=== PATIENT | female | born 2000 | race Caucasian/White ===

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

== ENCOUNTER 2025-01-11 08:50 | Emergency (ER) | payer OTHER, SELFPAY ==
--- OUTSIDE RECORDS SUMMARY | 2025-01-11 08:53 | XMS_ITS | Data Portability ---
Author Organization [facility] [employer], Main Office Address [address] [place] [address] Care Team Providers Care Research Hydraulic Engineer Name Role Phone EDGARDO GUTIERREZ Primary Care Provider Assessment Encounter Date Assessment Date Assessment LastModified by Organization Details LastModified Time 12/25/2024 12/25/2024 24 yo F with - WELL ADULT VISIT - ANXIETY - MIDDLE AND LOW BACK PAIN, chronic - VIT D DEFICIENCY - SMOKER D/w pt about her findings, recent labs & imagines and further plan of care. Will do routine labs, x-rays. Meds as directed. Heat pack as directed prn. Diet and exercise explained. Safe sex education given. HM: WWE - 2023, normal as per pt. Cont f/u with Gyne as per schedule. Flu - Pt declined. Tdap, Gardasil - At pharmacy/HD. F/u in 2-3 weeks. Annual labs in 01/01. [email or web address] Not available 12/25/2024 15:18:30 Plan of Treatment Reminders Order Date Submit Date Provider Last Modified By Organization Details Last Modified Time Details Appointments Any 15 2024 01:00P Frances Gutierrez MD Not available Not available Not available Lab vitamin D, 25-hydrox y, total, serum 2024 025 [email or web address] [facility] (Lab), [address] [place], [address], 01/10/2025 09:20:02 test, urine 2024 025 [facility], [address] [place] [address], [place], [address], 12/25/2024 15:14:22 CBC w/ auto diff [address] (Lab), [address] [place], [address], 01/10/2025 09:20:01 CMP, serum or plasma [address] (Lab), [address] [place], [address], 01/10/2025 09:20:01 lipid panel, serum [address] (Lab), [address] [place], [address], 01/10/2025 09:20:02 TSH, serum, reflex free T4 [address] (Lab), [address] [place], [address], 01/10/2025 09:20:02 urinalysi s complete, reflex culture [address] (Lab), [address] [place], [address], 01/10/2025 09:20:02 Referral None recorded. Procedures None recorded. Surgeries None recorded. Imaging XR, lumbosacr al spine, 2 or 3 view [address] ([facility]), [address] [place], [address], 01/09/2025 15:36:46 XR, thoracic spine, 3 view [address] ([facility]), [address] [place], [address], 01/02/2025 08:54:49 Medication Orders diclofena c sodium 75 mg tablet,de layed release 2024 025 [id number], [address] [place], [place], [id number], 12/25/2024 15:00:45 buspirone 7.5 mg tablet 2024 [facility] #[id number], [address] [place], [place], [id number], 12/25/2024 15:00:44 Patient TargetsNo targets recorded. Patient InstructionsNo instructions recorded. Reason for Referral None Reported. Results Created Date Observation Date Name Description Value Unit Range Abnormal Flag Note LastModifiedBy Organization Detail LastModifiedTime 12/26/1912/25/2024 pregn yvonne test, urine HCG Negati ve Not Available [address], [address], 12/25/2024 15:01:44 12/26/19 25 12/25/2024 pregn yvonne test, urine HCG negati ve Not Available [address], [address], 12/25/2024 15:01:44 01/07/20 25 01/06/2025 XR, thora cic spine , 3 view [facility] [address] [place] [address] [phone] Patien t Name: EMMA GARRIDO Access ion #: [id number] Sex: F : 1999 7 Locati on: MOP Attend ing Physic steffen: SHAY GUTIERREZ Orderi ng Physic steffen: SHAY GUTIERREZ Exam Date: 12:03 PM Exam Name: XR T SPINE 3V Admitt ing Diagno sis(es ): RADIOL OGY REPORT - FINAL EXAM: XR T SPINE 3V HISTOR Y: thorac ic back pain 24-yea r-old female with back pain, no known injury . COMPAR JACKI: None availa ble. TECHNI QUE: Three views of the thorac ic spine were perfor med. FINDIN GS: No fractu re or listhe sis are identi fied about the thorac ic spine. No signif icant degene rative change s. There is minima l thorac ic levosc oliosi s. IMPRES RAUL: 1. No fractu re or signif icant degene rative change s of the thorac ic spine. 2. Minima l thorac ic levosc oliosi s. Page 1 of 2 [facility] Patien t Name: EMMA GARRIDO Access ion #: [id number] Sex: F : 1999 7 Exam Date: 12:03 PM Exam Name: XR T SPINE 3V Admitt ing Diagno sis(es ): Create d and electr onical ly signed by: Alejandro ayala MD Signed Date: 3:18 PM (CT) Dictat ed by: Alejandro ayala MD DD: 3:18 PM (CT) DT: 3:18 PM (CT) Page [address] of [address] (Imaging) [address] [place], [address], 01/07/2025 10:41:39 01/07/20 25 01/06/2025 XR, lumba r spine [facility] [address] [place] [address] [phone] Patien t Name: EMMA GARRIDO Access ion #: [id number] Sex: F : 1999 7 Locati on: [facility] Attend ing Physic steffen: SHAY GUTIERREZ Orderi ng Physic steffen: SHAY GUTIERREZ Exam Date: 12:03 PM Exam Name: XR L SPINE Admitt ing Diagno sis(es ): RADIOL OGY REPORT - FINAL EXAM: XR L SPINE HISTOR Y: low back pain 24-yea r-old female with low back pain radiat ing to the bilate ral legs, no known injury . COMPAR JACKI: None availa ble. TECHNI QUE: AP and latera l views of the lumbar spine and spot latera l of the lumbos acral juncti on were perfor med. FINDIN GS: No fractu re or listhe sis of the lumbar spine. No signif icant degene rative change s. IMPRES RAUL: Page 1 of 2 [facility] Name[facility] EMMA G[facility] Access ion #: [id number] Sex: F : 1999 7 Exam Date: 12:03 PM Exam Name: XR L SPINE Admitt ing Diagno sis(es ): Unrema rkable radiog raphs of the lumbar spine. Given the patien t's histor y of lower extrem ity radicu lar sympto ms, consid er follow -up noncon trast MRI of the lumbar spine for evalua tion of the lumbar discs and nerve roots. Create d and electr onical ly signed by: Alejandro ayala MD Signed Date: 3:19 PM (CT) Dictat ed by: Alejandro ayala MD DD: 3:19 PM (CT) DT: 3:19 PM (CT) Page 2 of 2 [email or web address] [facility] (Imaging) [address] [place], [address], 01/07/2025 10:41:39 Result Notes None recorded. Problems Name Problem SNOMED Code Status Onset Date Resolution Date Notes Provider Name and Address Organization Details Recorded Time Vitamin D deficiency 52019039 Active 025 Edgardo Gutierrez MD [address], [facility] [address], [place], [address], [employer] [facility] [employer] 5 14:56:12 Cigarette smoker 80711334 Active 025 Edgardo Gutierrez MD [address], [address], [place], [address], [employer] 5 14:56:22 Thoracic back pain 283766582 Active 025 Edgardo Gutierrez MD [address], [place], [address], [employer] 5 14:58:27 Chronic low back pain 806521760 Active 025 Edgardo Gutierrez MD [address], [address], [employer] 5 14:58:45 Anxiety disorder 688478712 Active 025 Edgardo Gutierrez MD [address], [place], [address], [employer] 5 14:59:04 Problem Notes None recorded. Procedures Surgical History Date Name Laterality Status Provider Name and Address Organization Details Recorded Time 5 Smoking Cessation completed Edgardo Gutierrez MD [address], [address] [address], [place], [address], [employer] 12/25/2024 15:18:41 Imaging Results Imaging Date Name Status LastModified by Organiz ation Details LastModified Time 01/06/2025 XR, thoracic spine, 3 view completed [email or web address] [facility] (Imaging) [address] [place], [address], 01/07/2025 10:41:39 01/06/2025 XR, lumbar spine completed [email or web address] [facility] (Imaging) [address] [place], [address], 01/07/2025 10:41:39 Procedure Notes None recorded. Medical Equipment None Reported. Allergies No known drug allergies Medications Name Sig Start Date Stop Date Status Note LastModified by Organization Details LastModified Time buspirone 7.5 mg tablet TAKE 1 TABLET BY MOUTH TWICE DAILY NEEDED active Not Available Not Available No t Available diclofenac sodium 75 mg tablet,delay ed release TAKE 1 TABLET BY MOUTH EVERY 12 HOURS NEEDED active Not Available Not Available No t Available Vitals Date Recorded Body height Body mass index (BMI) Body weight Body temperature Oxygen saturation Oxygen saturation in Arterial blood by Pulse oximetry Heart rate Systolic blood pressure Diastolic blood pressure Provider Name and Address Organization Details Last Updated DateTime 177.8 cm 19 kg/m2 10555.8 9 g 97.7 [degF] 99 % 99 % 84 /min 110 mm[Hg] 70 mm[Hg] Stephania Mac RN [facility] [employer] 14:44:21 Social History Question Answer Notes LastModified by Organizat ion Details LastModified Time Tobacco Smoking Status Current Every Day Smoker Stephania Mac RN [facility], [email or web address] 12/25/2024 14:51:43 What Is Your Level Of Alcohol Consumption? None [email or web address] Information not available 12/25/2024 What Is Your Level Of Caffeine Consumption? Occasional 2 Cups Coffee Per Day [email or web address] Information not available 12/25/2024 Which Illicit Or Recreational Drugs Have You Used? Neversink [email or web address] Information not available 12/25/2024 Do You Or Have You Ever Used E-cigarettes Or Vape? Current User Of Electronic Cigarettes Information not available 12/25/2024 How Many Years Have You Used Illicit Or Recreational Drugs? 15 [email or web address] Information not available 12/25/2024 What Is Your Current Pack Years? 10packyears 10 Years On And Off [email or web address] Information not available 12/25/2024 At What Age Did You Start Smoking Tobacco? 14 [email or web address] Information not available 12/25/2024 Do You Or Have You Ever Used Smokeless Tobacco? Never Used Smokeless Tobacco [email or web address] Information not available 12/25/2024 How Much Tobacco Do You Smoke? 1 PPW 5 Cigarettes Per Day [email or web address] Information not available 12/25/2024 Do You Use Any Illicit Or Recreational Drugs? Yes [email or web address] Information not available 12/25/2024 How Many Years Have You Smoked Tobacco? 10 On And Off [email or web address] Information not available 12/25/2024 Have You Used IV Drugs? No Information not available 12/25/2024 Do You Or Have You Ever Used Any Other Forms Of Tobacco Or Nicotine? Yes [email or web address] Information not available 12/25/2024 How Many Years Have You Used E-cigarettes Or Vape? 3 [email or web address] Information not available 12/25/2024 Sex: Unknown Functional Status None recorded. Mental Status None recorded. Family History Relationship Description Onset Age of this Age Resolved Age Notes LastModified by Organization Details LastModified Time Father Hypertensive disorder 43 54 Not available 12/25 14:46:12 Father Diabetes mellitus 53 Not available 12/25 14:47:10 Father Congestive heart failure 50 53 [email or web address] Not available 12/25 14:47:56 Father Family history of stroke 50 53 [email or web address] Not available 12/25 14:48:29 Maternal Grandfather Hypertensive disorder 71 Not available 12/25 14:46:12 Maternal Grandfather Carcinoma in situ of lung 73 [email or web address] Not available 14:46:36 Medical History No medical history recorded. Gynecological HistoryNo gynecological history recorded. Obstetrics History GPAL:G 0 P 0 0 0 0 Past Encounters Encounter ID Performer Location Encounter Start Date Encounter Closed Date Diagnosis/Indication Diagnosis SNOMED-CT Code Diagnosis ICD10 Code Diagnosis Note [id number] Edgardo Gutierrez MD [facility] [address] [address] 12/25/2024 14:18:37 12/25/2024 15:22:49 Adult health examination 397789443 Z00.00 Vitamin D deficiency 347 38305 E55.9 Cigarette smoker 0843425 7 F17.210 Thoracic back pain 19593 8004 M54.6 Chronic low back pain 27 5039071 M54.50 Anxiety disorder 5926467 06 F41.9 Health Concerns Section Related Observation LastModified by Organization Detai ls LastModified Time None Recorded Concern Status LastModified by Organization Details LastModified Time None Recorded Advance Directives Directive None Recorded Payers Encounter Date Sequence Insurance Name Policy Number Policy Gleason Covered Member ID Lgeason Member ID Guarantor Name 12/25/2024 1 [employer] [facility] ON OR AFTER 09/08/2020 (MEDICAID REPLACEMENT - HMO) Emma Garrido [id number] Tonya Grarido Notes Date Note Type Note Provider Name and Address Organization Details Recorded Time 12/25/2024 text/html New pt visit:24 yo F is here to establish her care. Pt was seeing PCP at [facility] in the past.Doing overall well. C/o middle and lower back area pain for last year. Denies any fall/trauma/workm an's comp. C/o anxiety and stress since last year. Denies any mood swings/SI/HI. Pt has not taken any meds in the past for this.PMH, FH and SH reviewed. Edgardo Gutierrez MD [address] [address], [place], [address], [place] [employer] 12/25/2024 15:19:42 OBGyn Episode No OBEpisode recorded.
--- OUTSIDE RECORDS SUMMARY | 2025-01-11 08:53 | XMS_ITS | Clinical Summary ---
Author Organization [facility] Address [address] [place] [address] Care Team Providers Care Psychologist Personnel Name Role Phone Marielena Barros MD Unavailable Marielena Barros MD Primary Care Provider [phone] Source Comments [facility],non-owned Affiliates and Associated Physician Practices is amultiple site organization consisting of ambulatory clinics and hospital sitesin [place], [place], [place] and [place]. This disclosure is being madepursuant to the Care Everywhere program and may not contain all information available regarding this patient. Last updated 18.[facility] [employer] Allergies No known active allergies Medications Be aware that medications may not be up to date on this document. Always verify current medications with the patient. No known medications Active Problems Problem Noted Date Diagnosed Date Chest pain Immunizations Name Administration Dates Next Due INFLUENZA VACCINE, TRIV. (AF LURIA, FLUZONE TRIVALENT; 6MO+) (IIV3) 07/17/2012,06/27/2011 DTaP VACCINE IM (6wk-6yrs) 06/08/2006,,2001,07/24,2001 HEP A PEDS 2 DOSE 08/10/2009,06/08/2006 HEP B VACCINE, PED/ADOL 01/11/2002,2001, Human Papilloma Virus Danielle valent Vaccine 07/17/2012,06/27/2011 MENINGOCOCCAL ACWY (MCV4P) VAC IM 07/17/2012 MMR 06/08/2006,05/09/2002 PNEUMOCOCCAL CONJ, PEDS 08/19/2002,09/25,2001,05/21 POLIO IPV 06/08/2006, 2,2001,05/21 PPD 06/08/2006,05/09/2002 TDAP (7yrs+) 07/17/2012 VARICELLA 08/10/2009,08/19/2002 Social History Tobacco Use Types Packs/Day Years Used Date Smoking Tobacco: Never Assessed Sex and Gender Information Value Date Recorded Sex Assigned at Not on file Gender Identity Not on file Sexual Orientation Not on file Last Filed Vital Signs Vital Sign Reading Time Taken Comments Blood Pressure 98/46 07/17/2012 2:37 PM CDT Pulse 72 07/17/2012 2:37 PM CDT Temperature 36.6 C (97.8 F) 11/28/2011 3:37 PM [employer] Respiratory Rate - - Oxygen Saturation - - Inhaled Oxygen Concentration - - Weight 42.2 kg (93 lb) 07/17/2012 2:37 PM CDT Height 156.2 cm (5' 1.5 ) 07/17/2012 2:37 PM CDT Body Mass Index 17.29 07/17/2012 2:37 PM CDT Plan of Treatment Health Maintenance Due Date Last Done Comments HIV SCREENING 2016 CHLAMYDIA/GONORRHEA SCREENING 2017 MENINGOCOCCAL (Group B) VACCINE SHARED DECISION-MAKING (1 of 2 - Standard) 2017 HEPATITIS C SCREENING 03/17/2019 DTAP/TDAP/TD VACCINES (7 - Td or Tdap) 07/17/2022 07/17/2012, 06/08/2006, 09/24/2002, Additional history exists COVID-19 VACCINE ( - season) 2024 DEPRESSION SCREENING 10/09/2024 INFLUENZA VACCINE (Season Ended) 2025 07/17/2012, 06/27/2011 PAP SMEAR 04/26/2026 04/26/2023 ZOSTER VACCINE (1 of 2) 2051 HEPATITIS B VACCINE Completed 01/11/2002, 2001, 2001 PNEUMOCOCCAL VACCINE Completed 08/19/2002, 2001, 2001, Additional history exists HPV VACCINE Completed 07/17/2012, 06/27/2011 MENINGOCOCCAL GROUPS A/C/Y/W VACCINE Aged Out 07/17/2012 No longer eligible based on patient's age to complete this topic HIB VACCINE Aged Out No longer eligi ble based on patient's age to complete this topic Procedures Procedure Name Priority Date/Time Associated Diagnosis Comments PAP SMEAR REPORT ORDER 04/26/2023 from Last 3 Months or Most Recently Relevant to Health Maintenance Results * PAP SMEAR REPORT ORDER (04/26/2023) 04/26/2023 Narrative 04/26/2023 Ordered by an unspecified provider. Scanned Document LAB - PATHOLOGY/CYTO LOGY ORDERABLES from Last 3 Months or Most Recently Relevant to Health Maintenance Care Teams Psychologist Personnel Relationship Specialty Start Date End Date Marielena Barros MD PCP - Pediatrics 08/11/09 Marielena Barros MD PCP - General Pediatrics 11/28/11
[2025-01-11 09:06] VITALS: BP 113/64; PULSE 76; RESP 16; TEMP 36.6; O2SAT 98
--- OUTSIDE RECORDS SUMMARY | 2025-01-11 09:22 | XMS_ITS | Clinical Summary ---
Author Organization [facility] Address [address] [place] [address] Care Team Providers Care Manager Marketing Communications Name Role Phone Marielena Barros MD Unavailable Marielena Barros MD Primary Care Provider [phone] Source Comments [facility],non-owned Affiliates and Associated Physician Practices is amultiple site organization consisting of ambulatory clinics and hospital sitesin [place], [place], [place] and [place]. This disclosure is being madepursuant to the Care Everywhere program and may not contain all information available regarding this patient. Last updated 18.[facility] [employer] Allergies No known active allergies Medications Be [...] 36.6 C (97.8 F) 11/28/2011 3:37 PM [employer] Respiratory Rate - - Oxygen Saturation - [...] Recently Relevant to Health Maintenance Care Teams Manager Marketing Communications Relationship Specialty Start Date End Date Marielena Barros MD PCP - Pediatrics 08/11/09 Marielena Barros MD PCP - General Pediatrics 11/28/11
[2025-01-11 09:27] LABS: Basophils Percent Auto 0.6 % (0.2-1.2); Eosinophils Absolute Auto 0.1 K/mm3 (0-0.3); Eosinophils Percent Auto 1.7 % (0-4.4); Hematocrit 39.4 % (37.0-47.0); Hemoglobin 12.5 g/dL (12.0-15.0); Immature Granulocyte Absolute 0.02 K/mm3 (0.00-0.031); Immature Granulocyte Percent A 0.3 % (0-0.5); Lymphocytes Absolute Auto 1.56 K/mm3 (0.9-3.2); Lymphocytes Percent Auto 24.7 % (18.3-44.2); Mean Corpuscular HGB Conc 31.7 g/dl (32-36); Mean Corpuscular Hemoglobin 27.9 pg (26-34); Mean Corpuscular Volume 87.9 fl (80-100); Mean Platelet Volume 10.5 fl (7.4-10.4); Monocytes Absolute Auto 0.3 K/mm3 (0.1-0.6); Monocytes Percent Auto 4.7 % (2.6-8.5); Neutrophils Absolute Auto 4.3 K/mm3 (1.3-6.7); Platelet Count Result 262 k/mm3 (150-375); Red Blood Count 4.48 M/mm3 (4.2-5.4); Red Cell Distribution Width 13.2 % (11.5-14.5); White Blood Count 6.3 K/mm3 (4.5-10.0)
[2025-01-11 09:33] LABS: Add Urine Microscopic? YES; Appearance Urine Clear (Clear); Bacteria Urine None Seen /hpf; Bilirubin Urine Negative (Negative); Blood Urine 3+ (Negative); Color Urine Yellow (Yellow); Glucose Urine UA Negative (Negative); Ketones Urine Negative (Negative); Leukocyte Esterase Ur Negative LEU/UL (Negative); Nitrate Urine Negative (Negative); Non Pathogenic Casts 0-2; Protein Urine Negative (Negative); Squamous Epithelial Cell Urine None Seen /hpf (Few); Urobilinogen Urine 0.2 mg/dL (<2.0); WBC Urine 0-5 /hpf (0-3); pH Urine 6.5 (5.0-9.0)
[2025-01-11 09:36] LABS: Anion Gap 7 mmol/L (4-12); Blood Urea Nitrogen 14 mg/dL (7-17); Calcium 9.3 mg/dL (8.4-10.2); Carbon Dioxide 24 mmol/L (22-30); Chloride 106 mmol/L (98-107); Estimated CRCL calculation 99 ml/min; Estimated Glomerular Filt Rate > 60; Glucose 92 mg/dL (65-110); Potassium 4.2 mmol/L (3.4-5.0); Sodium 137 mmol/L (137-145)
[2025-01-11 09:39] LABS: BEDSIDEPREGUCG Negative (Negative)
--- NOTE | 2025-01-11 09:48 | ED_ITS ---
HPI - General Adult General Chief complaint: Abdominal Pain Stated complaint: flank, abd pain Time Seen by Provider: 01/11/25 09:03 Source: patient Mode of arrival: ambulatory Limitations: no limitations History of Present Illness HPI narrative: 24-year-old otherwise healthy here with a complains of bilateral by flank and back pain which is been ongoing for last several months ever since she had a baby. She also states that she has been having vaginal bleeding every day for last several weeks. Denies passing any clots. Patient states that she has not followed up with OB. Onset (ago): week(s) Location: back Radiation: non-radiation Severity: moderate Quality: aching Pain Consistency: constant Relieving factors: none Exacerbating factors: none Associated symptoms: denies other symptoms Related Data Allergies Allergy/AdvReac Type Severity Reaction Status Date / Time No Known Allergies Allergy Verified 01/11/25 08:53 Review of Systems 2 Review of Systems: All systems reviewed & are unremarkable except as noted in HPI and below Constitutional: Constitutional: Reports no additional constitutional complaints Eyes: Eyes: Reports no additional eye complaints ENT: Reports system reviewed and no additional complaints, except as documented Cardiovascular: Cardiovascular: Reports no additional cardiovascular complaints Respiratory: Respiratory: Reports no additional respiratory complaints Gastrointestinal: Gastrointestinal: Reports no additional gastrointestinal complaints Genitourinary: Genitourinary: Reports as per HPI Musculoskeletal: Musculoskeletal: Reports as per HPI FOR[facility]LY [facility], [facility] Social History Social History (Updated 08/10/19 @ 14:21 by Alexis Agarwal, TASHA) Smoking status: Current every day smoker Gender identity (if verbalized by the patient): Female Exam 2 Narrative: GENERAL: Well-appearing, well-nourished, and in no acute distress. HEAD: Normocephalic, atraumatic. EYES: PERRLA and EOMI. ENT: Nares clear, no rhinorrhea or epistaxis. Mucous membranes moist. NECK: Supple. CHEST: Clear to auscultation. No respiratory distress. HEART: Regular rate and rhythm. No murmur heard. Normal peripheral pulses. ABDOMEN: Soft, nontender, nondistended, normal active bowel sounds. EXTREMITIES: Normal range of motion. No edema. SKIN: Warm, dry, no rash. NEURO: No focal deficits. Alert and oriented x3. PSYCH: Normal mood and affect. Course Course Emergency Course: Informed her about her lab work, I advised her to follow-up with OBGYN regarding her prolonged vaginal bleeding. Vital Signs Vital signs: Vital Signs Temperature 36.6 C 01/11/25 09:06 Pulse Rate 76 01/11/25 09:06 Respiratory Rate 16 01/11/25 09:06 Blood Pressure 113/64 01/11/25 09:06 Pulse Oximetry 98 01/11/25 09:06 Oxygen Delivery Room Air 01/11/25 09:06 Temperature 36.6 C 01/11/25 09:06 Pulse Rate 76 01/11/25 09:06 Respiratory Rate 16 01/11/25 09:06 Blood Pressure 113/64 01/11/25 09:06 Pulse Oximetry 98 01/11/25 09:06 Oxygen Delivery Room Air 01/11/25 09:06 Medical Decision Making Vital Signs Vital Signs: Vital Signs Temperature 36.6 C 01/11/25 09:06 Pulse Rate 76 01/11/25 09:06 Respiratory Rate 16 01/11/25 09:06 Blood Pressure 113/64 01/11/25 09:06 Pulse Oximetry 98 01/11/25 09:06 Oxygen Delivery Room Air 01/11/25 09:06 Temperature 36.6 C 01/11/25 09:06 Pulse Rate 76 01/11/25 09:06 Respiratory Rate 16 01/11/25 09:06 Blood Pressure 113/64 01/11/25 09:06 Pulse Oximetry 98 01/11/25 09:06 Oxygen Delivery Room Air 01/11/25 09:06 Lab Data Lab results reviewed: Yes I reviewed the patient's lab results. 01/11/25 09:19 01/11/25 09:19 Labs: Lab Results 01/11/25 01/11/25 Range/Units 09:19 09:37 WBC 6.3 (4.5-10.0) K/mm3 RBC 4.48 (4.2-5.4) M/mm3 Hgb 12.5 (12.0-15.0) g/dL Hct 39.4 (37.0-47.0) % MCV 87.9 (80-100) fl MCH 27.9 (26-34) pg MCHC 31.7 L (32-36) g/dl RDW 13.2 (11.5-14.5) % Plt Count 262 (150-375) k/mm3 MPV 10.5 H (7.4-10.4) fl Immature Gran % (Auto) 0.3 (0-0.5) % Neut % (Auto) 68.0 (45.5-73.1) % Lymph % (Auto) 24.7 (18.3-44.2) % Cotton % (Auto) 4.7 (2.6-8.5) % Eos % (Auto) 1.7 (0-4.4) % Baso % (Auto) 0.6 (0.2-1.2) % Lymph # (Auto) 1.56 (0.9-3.2) K/mm3 Cotton # (Auto) 0.3 (0.1-0.6) K/mm3 Eos # (Auto) 0.1 (0-0.3) K/mm3 Baso # (Auto) 0.0 (0.0-0.1) K/mm3 Abs Immat Gran (auto) 0.02 (0.00-0.031) K/mm3 Absolute Neuts (auto) 4.3 (1.3-6.7) K/mm3 Absolute Nucleated RBC 0.000 (0.0-0.012) K/mm3 Nucleated RBC % 0.0 (0.0-0.2) % Sodium 137 (137-145) mmol/L Potassium 4.2 (3.4-5.0) mmol/L Chloride 106 (98-107) mmol/L Carbon Dioxide 24 (22-30) mmol/L Anion Gap 7 (4-12) mmol/L BUN 14 D (7-17) mg/dL Creatinine 0.75 (0.7-1.0) mg/dL Estim Creat Clear Calc 99 ml/min Estimated GFR > 60 (59 - ) Glucose 92 (65-110) mg/dL Calcium 9.3 (8.4-10.2) mg/dL Beta HCG, Quant Pending Urine Color Yellow (Yellow) Urine Appearance Clear (Clear) Urine pH 6.5 (5.0-9.0) Ur Specific [place] 1.010 (1.001-1.035) Urine Protein Negative (Negative) mg/dL Urine Glucose (UA) Negative (Negative) mg/dL Urine Ketones Negative (Negative) mg/dL Ur Blood (Man) 3+ H (Negative) Urine Nitrate Negative (Negative) Urine Bilirubin Negative (Negative) Urine Urobilinogen 0.2 (<2.0) mg/dL Leukocyte Esterase Rfl Negative (Negative) [place]/UL Urine RBC 6-10 H (0-2) /hpf Urine WBC 0-5 (0-3) /hpf Ur Squamous Epith Cells None seen (Few) /hpf Urine Bacteria None seen /hpf Urine Casts 0-2 POC Urine HCG, Qual Negative (Negative) Discharge Plan Discharge Clinical Impression: Abnormal vaginal bleeding Back pain Qualifiers: Back pain location: back pain in unspecified location Chronicity: unspecified B ack pain laterality: unspecified Qualified Code(s): M54.9 - Dorsalgia, unspecified Patient Disposition: Home, Self-Care Condition: Stable Instructions: Abnormal (Dysfunctional) Uterine Bleeding (ED), Back Pain (ED) Patient Language: [place]olan Prescriptions: New ibuprofen 600 mg tablet 600 mg PO Q6H PRN (Reason: pain) Qty: 20 0RF No Action famotidine [Pepcid] 20 mg tablet 20 mg PO BID Qty: 10 0RF ondansetron HCl [Zofran] 4 mg tablet 4 mg PO Q8H PRN (Reason: nausea and vomiting) Qty: 5 0RF metronidazole [Flagyl] 500 mg tablet 500 mg PO Q12H Qty: 7 0RF Follow-up/Referrals: Phong Sanches MD [Physician] - PHYSICIAN,BUSINESS MANAGEMENT INTERN [Primary Care Provider] - Time of Disposition: 09:56
[2025-01-11 09:52] LABS: Beta HCG Quantitative < 2.39 mIU/ML
[2025-01-11 10:07] VITALS: BP 108/62; PULSE 80; RESP 16; O2SAT 98
== END 2025-01-11 10:09 | disposition home or self-care (01) ==
PROVIDERS: Emergency Provider Family Medicine
DX: N93.9 Abnormal uterine and vaginal bleeding, unspecified (principal); M54.9 Dorsalgia, unspecified; F17.200 Nicotine dependence, unspecified, uncomplicated
CPT/HCPCS: 36415; 80048; 81001; 81025; 84702; 85025; 99283